=== PATIENT | female | born 1955 | race Caucasian/White ===

== ENCOUNTER 2022-04-02 11:09 | Emergency (ER) | payer MEDICAID, OTHER ==
[~2022-04-02] VITALS: Ht 162.6 cm; Wt 75.0 kg
[2022-04-02 12:35] LABS: Basophils # (auto) 0 10 ^3/uL (0-0.2); Basophils % (auto) 0.5 % (0.0-2.0); Eosinophils # (auto) 0.2 10 ^3/uL (0-0.8); Eosinophils % (auto) 3.1 % (0.0-7.0); Hematocrit 38.3 % (36.0-46.0); Hemoglobin 12.5 g/dL (12.2-16.2); Lymphocytes # (auto) 1.7 10 ^3/uL (0.4-5.4); Lymphocytes % (auto) 23.9 % (10.0-50.0); Mean Corpuscular Hemoglobin 29.4 pg (28.0-32.0); Mean Corpuscular Hgb Conc. 32.6 g/dL (32.0-36.0); Mean Corpuscular Volume 89.9 fL (80.0-100.0); Monocytes # (auto) 0.8 10 ^3/uL (0-1.3); Monocytes % (auto) 11.3 % (0.0-12.0); Neutrophils # (auto) 4.4 10 ^3/uL (1.6-8.6); Neutrophils % (auto) 61.2 % (37.0-80.0); Nucleated Red Blood Cells % 0.1 %; Red Blood Cells 4.26 10^6/uL (4.0-5.20); Red Cell Distribution Width 13.7 % (11.8-14.3); White Blood Cell 7.2 10^3/uL (4.4-10.8)
[2022-04-02 12:45] LABS: Albumin 2.7 g/dL (3.4-5.0); Calcium 7.7 mg/dL (8.5-10.1); Potassium 4.9 mmol/L (3.5-5.1)
[2022-04-02 12:47] LABS: BUN/Creatinine Ratio 13.4; Bilirubin, Total 0.3 mg/dL (0.2-1.0); Total Protein 6.2 g/dL (6.4-8.2)
[2022-04-02] MEDS ORDERED: HYDROcodone-ACET 5/325MG TAB PO ONE (14:30)
[2022-04-02] MEDS ORDERED: LACTATED RINGER'S 1,000 ML IV ONE (14:30)
[2022-04-02] MEDS ORDERED: HYDR1TAB97 PO (14:37)
[2022-04-02 17:17] VITALS: BP 119/92
== END 2022-04-02 16:23 | disposition home or self-care (01) ==
LOC: ER 11:09 → EDBD 11:09 → ER 16:23
DX: K85.90 Acute pancreatitis without necrosis or infection, unspecified (principal); I10 Essential (primary) hypertension; F17.210 Nicotine dependence, cigarettes, uncomplicated; F15.90 Other stimulant use, unspecified, uncomplicated; Z90.49 Acquired absence of other specified parts of digestive tract; Z90.710 Acquired absence of both cervix and uterus; Z90.89 Acquired absence of other organs; Z98.84 Bariatric surgery status
CPT/HCPCS: 36415; 74176; 80053; 83690; 84484; 85025; 93005

== ENCOUNTER 2022-04-05 12:30 | Emergency (ER) | payer MEDICAID ==
[~2022-04-05] VITALS: Ht 167.6 cm; Wt 70.4 kg
[2022-04-05 12:30] VITALS: BP 123/93
[~2022-04-05 12:30] MED LIST: HYDR1TAB97 PO
[2022-04-05 17:57] LABS: Basophils # (auto) 0.1 10 ^3/uL (0-0.2); Basophils % (auto) 1.3 % (0.0-2.0); Eosinophils # (auto) 0.2 10 ^3/uL (0-0.8); Eosinophils % (auto) 3.2 % (0.0-7.0); Hematocrit 41.2 % (36.0-46.0); Hemoglobin 13.4 g/dL (12.2-16.2); Lymphocytes # (auto) 1.9 10 ^3/uL (0.4-5.4); Lymphocytes % (auto) 26.2 % (10.0-50.0); Mean Corpuscular Hemoglobin 29.2 pg (28.0-32.0); Mean Corpuscular Hgb Conc. 32.5 g/dL (32.0-36.0); Mean Corpuscular Volume 89.9 fL (80.0-100.0); Monocytes # (auto) 0.5 10 ^3/uL (0-1.3); Monocytes % (auto) 7.6 % (0.0-12.0); Neutrophils # (auto) 4.4 10 ^3/uL (1.6-8.6); Neutrophils % (auto) 61.7 % (37.0-80.0); Nucleated Red Blood Cells % 0.4 %; Red Blood Cells 4.59 10^6/uL (4.0-5.20); Red Cell Distribution Width 13.8 % (11.8-14.3); White Blood Cell 7.1 10^3/uL (4.4-10.8)
[2022-04-05 18:12] LABS: Albumin 2.7 g/dL (3.4-5.0); BUN/Creatinine Ratio 12.4; Calcium 8.6 mg/dL (8.5-10.1); Potassium 4.9 mmol/L (3.5-5.1)
[2022-04-05 18:14] LABS: Bilirubin, Total 0.4 mg/dL (0.2-1.0); Total Protein 7.5 g/dL (6.4-8.2)
[2022-04-05] MEDS ORDERED: KETOROLAC TROMETH 60MG/2ML VIAL IM ONE (18:30)
== END 2022-04-05 19:15 | disposition home or self-care (01) ==
LOC: EDBD 12:30 → ER 12:30
DX: K85.90 Acute pancreatitis without necrosis or infection, unspecified (principal); F17.210 Nicotine dependence, cigarettes, uncomplicated; F15.10 Other stimulant abuse, uncomplicated; I10 Essential (primary) hypertension; Z90.49 Acquired absence of other specified parts of digestive tract; Z90.710 Acquired absence of both cervix and uterus; Z87.442 Personal history of urinary calculi
CPT/HCPCS: 36415; 80053; 83690; 85025; 93005; 96372; 99284; J1885

== ENCOUNTER 2022-07-12 10:54 | Emergency (ER) | payer OTHER, MEDICAID ==
[~2022-07-12] VITALS: Ht 165.1 cm; Wt 72.7 kg
[2022-07-12 11:37] VITALS: BP 145/98
[2022-07-12] MEDS ORDERED: TRAM-297 PO (14:18)
[2022-07-12] MEDS ORDERED: HYDROcodone-ACET 5/325MG TAB PO ONE (14:30)
== END 2022-07-12 15:24 | disposition home or self-care (01) ==
LOC: ER 10:54
DX: S29.019A Strain of muscle and tendon of unspecified wall of thorax, initial encounter (principal); S20.219A Contusion of unspecified front wall of thorax, initial encounter; I10 Essential (primary) hypertension; F17.210 Nicotine dependence, cigarettes, uncomplicated; Z90.49 Acquired absence of other specified parts of digestive tract; Z90.89 Acquired absence of other organs; Z90.710 Acquired absence of both cervix and uterus; Z79.899 Other long term (current) drug therapy; W51.XXXA Accidental striking against or bumped into by another person, initial encounter; Y93.89 Activity, other specified; Y92.89 Other specified places as the place of occurrence of the external cause; Y99.8 Other external cause status
CPT/HCPCS: 71111; 72070